=== PATIENT | female | born 1990 | race Hispanic/Latino ===

== ENCOUNTER 2020-11-14 09:46 | Emergency (ER) | payer MEDICAID, SELFPAY ==
--- NOTE | ~2020-11-14 | US_ITS ---
EXAMINATION: US OB <=14 wk fetus w TV DATE: 11/14/2020 11:01 INDICATION: Left adnexal pain. Left lower quadrant abdominal pain. TECHNIQUE: Real-time transabdominal and transvaginal pelvic ultrasound was performed. COMPARISON: None. FINDINGS: TRANSABDOMINAL ULTRASOUND: The uterus measures 9.7 x 6.1 x 7.8 cm. TRANSVAGINAL ULTRASOUND: There is an intrauterine gestational sac. A yolk sac is identified. The fet al crown rump length measures 4 mm, which correlates with an estimated gestational age of 6 weeks and 0 day(s) (+/-) 4 day(s). heart motion is identified measuring 121 beats per minute (bpm) by M- mode Doppler. There is a 1.7 cm hypoechoic submucosal mass, likely a fibroid. The right ovary measur es 3.3 x 2.9 x 2.2 cm. The left ovary measures 2.7 x 2.7 x 1.5 cm. There is no free fluid in the pelv is. IMPRESSION: 1. Single living intrauterine gestation with estimated date of delivery of 07/10/2021. 2. Uterine fibroid. Reviewed, dictated and finalized at location A. IMPRESSION: 1. Single living intrauterine gestation with estimated date of delivery of . 2. Uterine fibroid.
[2020-11-14 10:14] VITALS: BP 154/86; PULSE 96; RESP 14; TEMP 36.1; O2SAT 99
[2020-11-14] MEDS: SODIUM CHLORIDE 0.9% IV 1,000 ML 999 ML IV CONT (10:18)
[2020-11-14 10:21] LABS: Basophils Absolute Auto 0.1 K/mm3 (0.0-0.1); Basophils Percent Auto 0.4 % (0.2-1.2); Eosinophils Absolute Auto 0.2 K/mm3 (0-0.3); Eosinophils Percent Auto 1.6 % (0-4.4); Hemoglobin 11.4 g/dL (12.0-15.0); Immature Granulocyte Absolute 0.05 K/mm3 (0.00-0.031); Immature Granulocyte Percent A 0.4 % (0-0.5); Lymphocytes Absolute Auto 2.82 K/mm3 (0.9-3.2); Lymphocytes Percent Auto 24.8 % (18.3-44.2); Mean Corpuscular HGB Conc 30.8 g/dl (32-36); Mean Corpuscular Hemoglobin 23.2 pg (26-34); Mean Corpuscular Volume 75.2 fl (80-100); Mean Platelet Volume 9.8 fl (7.4-10.4); Monocytes Absolute Auto 0.7 K/mm3 (0.1-0.6); Monocytes Percent Auto 5.8 % (2.6-8.5); Neutrophils Absolute Auto 7.6 K/mm3 (1.3-6.7); Platelet Count Result 335 k/mm3 (150-375); Red Blood Count 4.92 M/mm3 (4.2-5.4); Red Cell Distribution Width 18.2 % (11.5-14.5); White Blood Count 11.4 K/mm3 (4.5-10.0)
[2020-11-14 10:27] LABS: Add Urine Microscopic? YES; Appearance Urine Cloudy (Clear); Bacteria Urine Trace /hpf; Bilirubin Urine Negative (Negative); Blood Urine Negative (Negative); Color Urine Yellow (Yellow); Glucose Urine UA Negative (Negative); Ketones Urine Negative (Negative); Leukocyte Esterase Ur 2+ LEU/UL (Negative); Mucus Urine Rare /lpf; Nitrate Urine Negative (Negative); Protein Urine 1+ mg/dL (Negative); RBC Urine 0-2 /hpf (0-2); Specific Grav Ur 1.029 (1.001-1.035); Squamous Epithelial Cell Urine Many /hpf (Few); Urobilinogen Urine Negative mg/dL (<2.0); WBC Urine 21-30 /hpf
[2020-11-14 10:29] LABS: Prothrombin Time 13.3 Seconds (11.1-14.7)
[2020-11-14 10:30] LABS: Alanine Aminotransferase 18 U/L (4-35); Albumin Level 4.2 g/dL (3.5-5.1); Alkaline Phosphatase 56 U/L (38-126); Anion Gap 7 mmol/L (8-16); Aspartate Amino Transferase 31 U/L (14-36); Bilirubin,Total 0.4 mg/dL (0.2-1.3); Blood Urea Nitrogen 14 mg/dL (7-17); Carbon Dioxide 24 mmol/L (22-30); Chloride 106 mmol/L (98-107); Estimated CRCL calculation 110 ml/min; Estimated Glomerular Filt Rate > 60; Glucose 122 mg/dL (65-105); Partial Thromboplastin Time 27.3 SECONDS (22.3-36.8); Potassium 3.7 mmol/L (3.4-5.0); Sodium 137 mmol/L (137-145)
[2020-11-14 10:55] VITALS: BP 125/62; PULSE 79; RESP 14; O2SAT 97
--- NOTE | 2020-11-14 10:56 | ED.GENADULT ---
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 dispatcher <Tyson Barbosa PA-C - Last Filed: 11/14/20 11:33> Time Seen by Provider: 11/14/20 09:50 <Tyson Barbosa PA-C - Last Filed: 11/14/20 11:33> Source: patient, family and RN notes reviewed <Tyson Barbosa PA-C - Last Filed: 11/14/20 11:33> Mode of arrival: ambulatory <Tyson Barbosa PA-C - Last Filed: 11/14/20 11:33> Limitations: no limitations <Tyson Barbosa PA-C - Last Filed: 11/14/20 11:33> History of Present Illness HPI narrative: Patient is a 30-year-old female who presents to emergency department for evaluation of cramping and nausea that have been present for the last month patient notes that she had had a regular menses last month but then has not had 1 since patient had a positive test at home and was referred to the emergency department today for evaluation by primary care for concern of possible ectopic . Patient has follow-up with her husbandry technician next . Patient notes that this will be Dr. Clifton. Patient denies any current pain. Patient denies vaginal bleeding illness urinary symptoms or other complaints and presents in no distress with family <Tyson Barbosa PA-C - Last Filed: 11/14/20 11:33> Related Data Allergies/adverse reactions: Allergies Allergy/AdvReac Type Severity Reaction Status Date / Time aspirin Allergy Mild STATES SHE Verified 11/14/20 10:18 HAD A REACTION A CHILD <Tyson Barbosa PA-C - Last Filed: 11/14/20 11:33> Review of Systems Review of Systems: All systems reviewed & are unremarkable except as noted in HPI and below <Tyson Barbosa PA-C - Last Filed: 11/14/20 11:33> PMFSH Past Medical History Medical History: Medical History Polycystic disease, ovaries <CESAR Lane Last Filed: 11/14/20 11:33> Social History Social History: Social History (Updated 11/14/20 @ 11:28 by Tyson Barbosa PA-C) Smoking status: Never smoker <Tyson Barbosa PA-C - Last Filed: 11/14/20 11:33> Exam Narrative: Exam Narrative: GENERAL: Well-appearing, obese, and in no acute distress. HEAD: Normocephalic, atraumatic. EYES: PERRLA and EOMI. ENT: Nares clear, no rhinorrhea or epistaxis. Mucous membranes moist. CHEST: Clear to auscultation. No respiratory distress. No wheezes rales or rhonchi HEART: Regular rate and rhythm. No murmur heard. Normal peripheral pulses. ABDOMEN: Soft, mild left adnexal and suprapubic tenderness no rebound or guarding, nondistended. EXTREMITIES: Normal range of motion. No edema. SKIN: Warm, dry, no rash. NEURO: No focal deficits. Alert and oriented x3. PSYCH: Normal mood and affect. <Tyson Barbosa PA-C - Last Filed: 11/14/20 11:33> Course Course Emergency Course: Patient in the room in no distress with confirmed intrauterine patient is afebrile nontoxic-appearing no distress denies any urinary symptoms or any vaginal bleeding or other complaints patient in the room in no distress resting comfortably agreeing to follow with her husbandry technician next week as planned and given reasons to return <Tyson Barbosa PA-C - Last Filed: 11/14/20 11:33> Vital Signs Vital signs: Vital Signs Temperature 96.9 F L 11/14/20 10:14 Pulse Rate 96 11/14/20 10:14 Respiratory Rate 14 11/14/20 10:14 Blood Pressure 154/86 H 11/14/20 10:14 Pulse Oximetry 99 11/14/20 10:14 Temperature 96.9 F L 11/14/20 10:14 Pulse Rate 71 11/14/20 11:53 Respiratory Rate 14 11/14/20 11:53 Blood Pressure 142/81 H 11/14/20 11:53 Pulse Oximetry 100 11/14/20 11:53 <Tyson Barbosa PA-C - Last Filed: 11/14/20 11:33> Vital Signs Temperature 96.9 F L 11/14/20 10:14 Pulse Rate 96 11/14/20 10:14 R
[2020-11-14 11:53] VITALS: BP 142/81; PULSE 71; RESP 14; O2SAT 100
== END 2020-11-14 11:54 | disposition home or self-care (01) ==
PROVIDERS: Emergency Medicine Emergency Medical Services; Emergency Provider General Practice; PCP Family Medicine
DX: O26.891 Other specified pregnancy related conditions, first trimester (principal); R10.9 Unspecified abdominal pain; O99.281 Endocrine, nutritional and metabolic diseases complicating pregnancy, first trimester; E28.2 Polycystic ovarian syndrome; O99.891 Other specified diseases and conditions complicating pregnancy; D25.9 Leiomyoma of uterus, unspecified; Z3A.01 Less than 8 weeks gestation of pregnancy
CPT/HCPCS: 36415; 76801; 76817; 80053; 81001; 81025; 84702; 85025; 85461; 85610; 85730; 87077; 87086; 87088; 96360; 99284; J7030

== ENCOUNTER 2020-12-21 13:44 | Outpatient (CLI) | payer MEDICAID, SELFPAY ==
--- NOTE | ~2020-12-21 | US_ITS ---
EXAMINATION: US OB <= 14 weeks fetus DATE: 12/21/2020 14:33 INDICATION: Routine care. TECHNIQUE: Real-time transabdominal pelvic ultrasound was performed. COMPARISON: Ultrasound 11/14/2020 FINDINGS: The uterus measures 12.0 x 7.5 x 9.6 cm. There is an intrauterine gestational sac. The placenta is an terior. The crown rump length measures 5.5 cm, which correlates with an estimated gestational age of 12 weeks and 1 day(s) (+/-) 1 week(s) and 1 day(s). heart motion is identified measuring 161 beats per minute (bpm) by M-mode Doppler. The right ovary measures 3.8 x 2.7 x 2.5 cm. The left ovary measures 3.1 x 1.8 x 1.8 cm. There is no free fluid in the pelvis. IMPRESSION: 1. Single living intrauterine gestation with estimated date of delivery of 07/10/2021 based on the u ltrasound from 11/14/2020. Reviewed, dictated and finalized at location A. IMPRESSION: 1. Single living intrauterine gestation with estimated date of delivery of based on the ultrasound from 11/14/2020.
== END 2020-12-21 13:45 | disposition home or self-care (01) ==
LOC: ANHIMG 13:48
PROVIDERS: Visit Provider Obstetrics & Gynecology
DX: Z34.90 Encounter for supervision of normal pregnancy, unspecified, unspecified trimester (principal)
CPT/HCPCS: 76801

== ENCOUNTER 2021-03-07 09:35 | Outpatient (RCR) | payer BC, SELFPAY ==
[2021-03-07 09:48] VITALS: BMI 82.3
== END 2021-05-29 10:11 | disposition home or self-care (01) ==
LOC: ANHDMC 09:35
PROVIDERS: PCP Family Medicine; Visit Provider Obstetrics & Gynecology Obstetrics
DX: O24.419 Gestational diabetes mellitus in pregnancy, unspecified control (principal); Z71.3 Dietary counseling and surveillance; Z3A.00 Weeks of gestation of pregnancy not specified
CPT/HCPCS: 97802; 99199

== ENCOUNTER 2021-04-03 16:43 | Observation (INO) | payer BC, SELFPAY ==
[2021-04-03 17:34] VITALS: BP 125/60; PULSE 84
[2021-04-03 17:42] VITALS: BMI 37.3
--- NOTE | 2021-04-03 17:44 | OBADM ---
This patient, Dalila Peralta, admitted to the OB room OB Post 113 for observation. Patient/family oriented to hospital policies and general routines including ID bracelet, bed and alarms, visiting hours, pain management, procedures, bathroom and other care routines, personal items, smoking policy, room service/diet, and visiting hours. Patient/Family are encouraged to report perceived risks to care and to ask questions if they do not understand what they are told or what they should do.
[2021-04-03 17:45] LABS: Add Urine Microscopic? YES; Appearance Urine Cloudy (Clear); Bacteria Urine Trace /hpf; Bilirubin Urine Negative (Negative); Blood Urine Negative (Negative); Color Urine Yellow (Yellow); Glucose Urine UA Negative (Negative); Ketones Urine Negative (Negative); Leukocyte Esterase Ur 3+ LEU/UL (NEGATIVE); Mucus Urine Rare /lpf; Nitrate Urine Negative (Negative); Protein Urine 1+ mg/dL (Negative); Specific Grav Ur 1.024 (1.001-1.035); Squamous Epithelial Cell Urine Many /hpf (Few); Urobilinogen Urine Negative mg/dL (<2.0); WBC Urine 21-30 /hpf (0-3)
[2021-04-03 17:46] VITALS: BP 117/66; PULSE 78
--- NOTE | 2021-04-07 10:34 | PM.OBTRLD ---
OB - Triage/Final Diagnosis Visit Information Reason for evaluation: threatened labor Comments/Additional reasons for admission: I have assessed the risk for this patient, Dalila Peralta, and determined that she would benefit from observation care. Evaluation Laboratory results: Laboratory Tests 04/03/21 17:33 Urine Color Yellow Urine Appearance Cloudy H Urine pH 6.0 Ur Specific [place] 1.024 Urine Protein 1+ H Urine Glucose (UA) Negative Urine Ketones Negative Ur Blood (Man) Negative Urine Nitrate Negative Urine Bilirubin Negative Urine Urobilinogen Negative Ur Leukocyte Esterase 3+ H Urine RBC 6-10 H Urine WBC 21-30 H Ur Squamous Epith Cells Many H Urine Bacteria Trace Urine Mucus Rare
== END 2021-04-03 18:10 | disposition home or self-care (01) ==
PROVIDERS: Obstetrics & Gynecology; Admitting Provider Obstetrics & Gynecology; PCP Family Medicine; Visit Provider Obstetrics & Gynecology
DX: O47.9 False labor, unspecified (principal); Z3A.00 Weeks of gestation of pregnancy not specified
CPT/HCPCS: 81001; 87086; G0378; G0379

== ENCOUNTER 2021-08-08 10:32 | Emergency (ER) | payer BC, SELFPAY ==
[2021-08-08 10:44] VITALS: BP 132/70; PULSE 76; RESP 16; TEMP 37.3; O2SAT 99
--- NOTE | 2021-08-08 12:04 | ED.GENADULT ---
HPI - General Adult General Chief complaint: Upper Respiratory Infection Stated complaint: abd pain/back pain Time Seen by Provider: 08/08/21 11:55 Source: patient and RN notes reviewed Mode of arrival: ambulatory Limitations: no limitations History of Present Illness HPI narrative: Patient presents today complaining of dizziness and body aches since yesterday with back pain, headache, cough, runny nose since 4:00 this morning. Denies fever or shortness of breath. She has been taking DayQuil and NyQuil without much relief. She has been vaccinated against COVID-19. MD complaint: Body aches, cough Related Data Home Medications Medication Instructions Recorded Confirmed No Home Medications 08/08/21 08/08/21 Allergies Allergy/AdvReac Type Severity Reaction Status Date / Time aspirin Allergy Mild STATES SHE Verified 11/14/20 10:18 HAD A REACTION A CHILD Review of Systems Review of Systems: CONSTITUTIONAL: Denies fever, chills, or sweats.+ Body aches EYES: Denies visual changes, redness, or discharge. ENT: Denies congestion, sore throat, or otalgia.+ Rhinorrhea CARDIOVASCULAR: Denies chest pain, palpitations, or edema. RESPIRATORY: Denies dyspnea.+ Cough GASTROINTESTINAL: Denies abdominal pain, nausea, vomiting, or diarrhea. GENITOURINARY: Denies dysuria or hematuria. SKIN: Denies rash, itching, or wounds. MUSCULOSKELETAL: Denies joint pain, or myalgia.+ Back pain NEUROLOGIC: Denies numbness, tingling, or weakness.+ Headache, dizziness PSYCH: Denies depression or anxiety. [facility] Past Medical History Medical History Polycystic disease, ovaries Social History Social History Smoking status: Never smoker Spiritual care concerns: No Comments At time of signature, I have reviewed and agree with nursing past medical, surgical, social and family history unless otherwise noted. Please see nursing chart for further information. There is no relevant family history pertinent to the presenting complaint Exam Narrative: GENERAL: Mildly ill-appearing, well-nourished, and in no acute distress. HEAD: Normocephalic, atraumatic. EYES: EOMI. No redness or drainage. Conjunctivae normal. ENT: Mucous membranes pink and moist. Nares clear. No rhinorrhea. TMs normal bilaterally. Throat normal. Uvula midline. NECK: Normal AROM. Supple. No lymphadenopathy. CHEST: No respiratory distress. Clear to auscultation. HEART: Regular rate and rhythm. No murmur appreciated. Normal peripheral pulses. EXTREMITIES: Normal range of motion. No edema. SKIN: Warm, dry, no rash. Capillary refill normal. Normal skin turgor. NEURO: No focal deficits. Alert and oriented x3. Gait steady. PSYCH: Normal affect. No signs of depression or anxiety. Course Course Level of Care: Express Care Visit Vital Signs Vital signs: Vital Signs Temperature 99.1 F 08/08/21 10:44 Pulse Rate 76 08/08/21 10:44 Respiratory Rate 16 08/08/21 10:44 Blood Pressure 132/70 08/08/21 10:44 Pulse Oximetry 99 08/08/21 10:44 Temperature 99.1 F 08/08/21 10:44 Pulse Rate 76 08/08/21 10:44 Respiratory Rate 16 08/08/21 10:44 Blood Pressure 132/70 08/08/21 10:44 Pulse Oximetry 99 08/08/21 10:44 Reviewed. Pt has been instructed to follow up with her PCP regarding her elevated blood pressure today. Medical Decision Making Differential Diagnosis Differential Diagnosis: COVID-19, viral syndrome, URI Vital Signs Vital Signs: Vital Signs Temperature 99.1 F 08/08/21 10:44 Pulse Rate 76 08/08/21 10:44 Respiratory Rate 16 08/08/21 10:44 Blood Pressure 132/70 08/08/21 10:44 Pulse Oximetry 99 08/08/21 10:44 Temperature 99.1 F 08/08/21 10:44 Pulse Rate 76 08/08/21 10:44 Respiratory Rate 16 08/08/21 10:44 Blood Pressure 132/70 08/08/21 10:44 Pulse Oximetry 99 01
== END 2021-08-08 12:11 | disposition home or self-care (01) ==
PROVIDERS: Emergency Provider Nurse Practitioner
DX: U07.1 COVID-19 (principal); E28.2 Polycystic ovarian syndrome
CPT/HCPCS: 87426; 99213; C9803; G0463

== ENCOUNTER 2023-03-14 11:51 | Emergency (ER) | payer BC, SELFPAY ==
[2023-03-14 12:02] VITALS: BP 124/85; PULSE 74; RESP 16; TEMP 36.7; O2SAT 100
--- NOTE | 2023-03-14 12:10 | ED.URI ---
HPI - URI/Sore Throat General Chief Complaint: Upper Respiratory Infection Stated Complaint: chills,bodyaches Time Seen by Provider: 03/14/23 12:11 Source: patient and RN notes reviewed Mode of arrival: ambulatory Limitations: no limitations History of Present Illness HPI Narrative: 32-year-old female presented for complaint of fatigue, headache, body aches, sinus pressure/congestion, sore throat, fever/chills. onset last night. Also reports intermittent left ear pain x1 week, with occasional ringing. Not taking anything for symptoms. Denies known sick contacts. Denies sob, wheezing, n/v/d. MD elicited complaint: cough Related Data Home Medications Medication Instructions Recorded Confirmed medroxyprogesterone 150 mg/mL 150 mg IM [id number] 03/14/23 03/14/23 intramuscular suspension Allergies Allergy/AdvReac Type Severity Reaction Status Date / Time aspirin Allergy Mild STATES SHE Verified 03/14/23 12:00 HAD A REACTION A CHILD Review of Systems Review of Systems: CONSTITUTIONAL: Endorses malaise, chills, sweats, fever EYES: Denies visual changes, redness, or discharge ENT: Reports rhinorrhea, congestion, otalgia, sore throat CARDIOVASCULAR: Denies chest pain, palpitations, edema RESPIRATORY: Reports cough, post nasal drainage. Denies dyspnea GASTROINTESTINAL: Denies abdominal pain, nausea, vomiting, diarrhea SKIN: Denies rash or itching MUSCULOSKELETAL: Endorses myalgia NEUROLOGIC: Endorses headache PMFSH Past Medical History Medical History Polycystic disease, ovaries Social History Social History Smoking status: Never smoker Spiritual care concerns: No Exam Narrative: GENERAL: mildly Ill-appearing, nontoxic no acute distress. HEAD: Normocephalic EYES: PERRLA, conjunctivae clear ENT: Mucous membranes moist. Right TM pearly price with dull light reflex; Left TM erythematous and bulging with purulent effusion; no tragal or mastoid tenderness. Oropharynx erythematous without lesions or exudate, no drooling, no hoarseness, no trismus, uvula midline. NECK: Supple. No lymphadenopathy CHEST: Clear to auscultation, breath sounds equal. No respiratory distress, speaks in full sentences. HEART: Regular rate and rhythm. No murmur heard. SKIN: Warm, dry, no rash. NEURO: Alert and oriented x3. PSYCH: Normal mood and affect Course Course Emergency Course: Patient is aware of diagnosis, understands and agrees to treatment plan. Anticipatory guidance given. Patient agrees to follow-up as directed and is aware of reasons to seek care at the emergency department. Portions of this record may have been created with voice recognition software Level of Care: Express Care Visit Vital Signs Vital signs: Vital Signs Temperature 98.1 F 03/14/23 12:02 Pulse Rate 74 03/14/23 12:02 Respiratory Rate 16 03/14/23 12:02 Blood Pressure 124/85 03/14/23 12:02 Pulse Oximetry 100 03/14/23 12:02 Oxygen Delivery Room Air 03/14/23 12:02 Temperature 98.1 F 03/14/23 12:02 Pulse Rate 74 03/14/23 12:02 Respiratory Rate 16 03/14/23 12:02 Blood Pressure 124/85 03/14/23 12:02 Pulse Oximetry 100 03/14/23 12:02 Oxygen Delivery Room Air 03/14/23 12:02 reviewed MDM - URI/Sore Throat MDM Narrative Medical decision making narrative: results of COVID and strep test reviewed with patient. Discussed physical exam findings of left AOM. Advised supportive measures and signs/symptoms to go to the ER. Pt is appropriate for outpt treatment and f/u. Differential Diagnosis Differential diagnosis: Likely upper respiratory infection, otitis media, sinusitis, viral infection and pharyngitis Lab Data Labs: Lab Results 03/14/23 Range/Units 12:25 POC SARS CoV-2 Ag Negative (Negative) Influenza A Screen Negative
== END 2023-03-14 12:59 | disposition home or self-care (01) ==
PROVIDERS: Emergency Provider Nurse Practitioner Family; PCP Emergency Medicine
DX: H66.92 Otitis media, unspecified, left ear (principal); Z20.822 Contact with and (suspected) exposure to COVID-19; E28.2 Polycystic ovarian syndrome
CPT/HCPCS: 87081; 87426; 87804; 87880; 99213; C9803; G0463

== ENCOUNTER 2023-07-17 12:52 | Emergency (ER) | payer BC, SELFPAY ==
[2023-07-17 13:24] VITALS: BP 145/86; PULSE 71; RESP 16; TEMP 36.8; O2SAT 99
--- NOTE | 2023-07-17 14:44 | ED.URI ---
HPI - URI/Sore Throat General Chief Complaint: Upper Respiratory Infection Stated Complaint: runny nose,both ears ache History of Present Illness HPI Narrative: 32-year-old female presenting for complaint of bilateral ear pressure and runny nose over the past few days. She endorses more frequent ear infections over the past year. She is taking multiple [id number] medications for symptoms. Endorses occasional dizziness. She denies ear drainage, tinnitus, headache, nausea, vomiting diarrhea, fevers or chills. Related Data Home Medications Medication Instructions Recorded Confirmed medroxyprogesterone 150 mg/mL 150 mg IM [id number] 03/14/23 07/17/23 intramuscular suspension Allergies Allergy/AdvReac Type Severity Reaction Status Date / Time aspirin Allergy Mild STATES SHE Verified 07/17/23 14:00 HAD A REACTION A CHILD Review of Systems Review of Systems: Per HPI [facility] Past Medical History Medical History Polycystic disease, ovaries Social History Social History Smoking status: Never smoker Spiritual care concerns: No Exam Narrative: GENERAL: well-appearing, no acute distress. EYES: conjunctivae clear ENT: Mucous membranes moist. Left TM pearly price with normal light reflex, right TM erythematous, bulging and intact, canal not erythematous, No drainage; no tragal tenderness. Oropharynx erythematous, Tonsils enlarged 1+ and without exudate. No drooling, no hoarseness, no trismus, uvula midline. No tripod positioning, hot potato voice, or soft palate swelling. NECK: Supple. No lymphadenopathy CHEST: Clear to auscultation, breath sounds equal. No respiratory distress, speaks in full sentences. HEART: Regular rate and rhythm. No murmur heard. SKIN: Warm, dry, no rash. NEURO: Alert and oriented x3. Course Course Emergency Course: Patient is aware of diagnosis, understands and agrees to treatment plan. Anticipatory guidance given. Patient agrees to follow-up as directed and is aware of reasons to seek care at the emergency department. Portions of this record may have been created with voice recognition software Level of Care: Express Care Visit Vital Signs Vital signs: Vital Signs Temperature 98.2 F 07/17/23 13:24 Pulse Rate 71 07/17/23 13:24 Respiratory Rate 16 07/17/23 13:24 Blood Pressure 145/86 H 07/17/23 13:24 Pulse Oximetry 99 07/17/23 13:24 Oxygen Delivery Room Air 07/17/23 13:24 Temperature 98.2 F 07/17/23 13:24 Pulse Rate 71 07/17/23 13:24 Respiratory Rate 16 07/17/23 13:24 Blood Pressure 145/86 H 07/17/23 13:24 Pulse Oximetry 99 07/17/23 13:24 Oxygen Delivery Room Air 07/17/23 13:24 MDM - URI/Sore Throat MDM Narrative Medical decision making narrative: discussed physical exam findings, Advise supportive treatments. Patient is appropriate for outpatient treatment and follow-up. Differential Diagnosis Differential diagnosis: Likely upper respiratory infection, viral infection and pharyngitis Discharge Plan Discharge Clinical Impression: Upper respiratory infection Patient Disposition: Home, Self-Care Condition: Stable Instructions: Antibiotic Form, Ear Infection (ED), Upper Respiratory Infection (ED) Additional Instructions: take antibiotic as directed Recommend Flonase spray and Zyrtec (or Claritin/Trang) over the counter Cough syrup may cause drowsiness; avoid driving or take it at night time. Tylenol 1000mg every 8 hours as needed for pain Symptomatic treatment includes: rest, fluids, and increase humidity of the air at home. Follow up with your primary care provider in 1 week. Go to the ER for worsening symptoms or concerns. Prescriptions: New amoxicillin-pot clavulanate 875-125 mg tablet 1 tablet PO Q12H 7 Days Qty: 14 0RF No Action medr
== END 2023-07-17 14:52 | disposition home or self-care (01) ==
PROVIDERS: Emergency Provider Nurse Practitioner Family; PCP Physician Assistant
DX: J06.9 Acute upper respiratory infection, unspecified (principal); E28.2 Polycystic ovarian syndrome
CPT/HCPCS: 99213; G0463

== ENCOUNTER 2023-09-10 10:21 | Emergency (ER) | payer BC, SELFPAY ==
--- NOTE | 2023-09-10 10:26 | ED.URI ---
HPI - URI/Sore Throat General Chief Complaint: Upper Respiratory Infection Stated Complaint: Sinus/Bodyaches Time Seen by Provider: 09/10/23 10:26 Source: patient Mode of arrival: ambulatory Limitations: no limitations History of Present Illness HPI Narrative: Dalila is a 33-year-old female patient presenting to the clinic today with complaints of runny nose, cough, sore throat, body aches, chest congestion, and feeling feverish. She reports symptoms started 3 days ago with throat pain and has gradually gotten worse over the past 1 day. No known exposure to anyone with COVID, flu, or strep. States cough is productive bringing up some yellow phlegm. Denies smoking history. No history of asthma or COPD. MD elicited complaint: cough, sore throat, rhinorrhea and nasal congestion Related Data Home Medications Medication Instructions Recorded Confirmed medroxyprogesterone 150 mg/mL 150 mg IM [id number] 03/14/23 09/10/23 intramuscular suspension metformin 500 mg tablet 500 mg PO BID 09/10/23 09/10/23 Allergies Allergy/AdvReac Type Severity Reaction Status Date / Time aspirin Allergy Mild STATES SHE Verified 09/10/23 10:25 HAD A REACTION A CHILD Review of Systems Review of Systems: Pertinent positives per HPI. Patient denies any rash, headache, visual changes, dizziness, cough, shortness of breath, chest pain, palpitations, nausea, vomiting, diarrhea, constipation, abdominal pain, or any urinary issues. [facility] Past Medical History Medical History Polycystic disease, ovaries Social History Social History Smoking status: Never smoker Spiritual care concerns: No Comments At the time of my signature, I reviewed and agree with the nursing past medical, surgical, social, and family history. There is no relevant family history pertinent to the patient complaint. Exam Narrative: General: Well-developed, obese, in no apparent distress Head: Normocephalic, atraumatic Eyes: Pupils equally round and reactive to light bilaterally, EOM intact, sclera and conjunctive clear, no discharge, lids normal Ears: TMs intact and congested, ear canals clear, no drainage, grossly hearing normal. Nose: Nares patent, clear nasal discharge, moderate inflammation, no sinus tenderness. Mouth: Oral pharynx red without lesions or masses, good dentition, MMM. Neck: Supple, trachea midline, no enlargement of anterior or posterior cervical nodes, no thyroid masses or goiter palpable. Cardio: Regular rate and rhythm, s1 and s2 normal, no murmur appreciated. Resp: Clear to auscultation bilaterally, no rhonchi, rales, wheezing or rubs Course Course Emergency Course: Portions of this record may have been created with voice recognition software. Level of Care: Express Care Visit Vital Signs Vital signs: Vital signs reviewed MDM - URI/Sore Throat MDM Narrative Medical decision making narrative: At the time of visit patient is resting comfortably on the exam table. Patient appears to be nontoxic. Labs: COVID, influenza, and strep test was performed. Influenza B testing was positive. COVID and strep test were negative. We will send strep for culture. Plan: Testing was positive for influenza B. Patient is out of the window for Tamiflu. Work note was given supportive measures were discussed with the patient and they voiced understanding discharge instructions and agrees to treatment plan. Return precautions reviewed Differential Diagnosis Differential diagnosis: Likely upper respiratory infection, otitis media, sinusitis, viral infection, bronchitis, influenza, pharyngitis and other (COVID) Discharge Plan Discharge Clinical Impression: Influenza B Patient Disposition: Home, Self-Care Condition: Stable Instructions: Antibiotic Form, Influenza (ED) Additional Instructions:
[2023-09-10 10:34] VITALS: BP 147/105; PULSE 82; RESP 16; TEMP 36.4; O2SAT 100
== END 2023-09-10 10:49 | disposition home or self-care (01) ==
PROVIDERS: Emergency Provider Nurse Practitioner Family; PCP Physician Assistant
DX: J10.1 Influenza due to other identified influenza virus with other respiratory manifestations (principal); Z79.84 Long term (current) use of oral hypoglycemic drugs; Z79.899 Other long term (current) drug therapy; Z20.822 Contact with and (suspected) exposure to COVID-19
CPT/HCPCS: 87081; 87426; 87804; 87880; 99213; G0463

== ENCOUNTER 2023-12-15 20:04 | Emergency (ER) | payer BC, SELFPAY ==
--- NOTE | ~2023-12-15 | XR_ITS ---
Portable chest x-ray Comparison: None Clinical History: Chest pain Findings: Lungs are clear, without focal consolidation or pleural effusion. Cardiomediastinal silho uette is unremarkable. Bones and soft tissues are unremarkable. Impression: Normal chest. Reviewed, dictated and finalized at location M. Impression: Normal chest.
--- NOTE | ~2023-12-15 | CT_ITS ---
Non-contrast CT scan of the Abdomen and Pelvis Clinical indication: Right flank pain Technique: 2.5 mm axial scans were obtained through the abdomen and pelvis without intravenous or or al contrast. Dose reduction technique was used on this scan by utilizing automated exposure control a nd iterative reconstruction technique. The dose-length product (DLP) was 1514.04 mGy-cm. Findings: Images through the lung bases reveal no abnormalities. There is no evidence of renal or ureteral calculi. The kidneys and the ureters are nondilated. Calcified gallstone present. There is diffuse hepatic steatosis. The spleen, pancreas, and adrenals a ppear normal. There is no aortic aneurysm. There is no evidence of bowel obstruction. Images through the pelvis were performed. There is no evidence of ascites or lymphadenopathy. Urinary bladder unremarkable. No adnexal mass seen. No ascites. Impression: Cholelithiasis. Probable diffuse hepatic steatosis. Reviewed, dictated and finalized at [facility]. Impression: Cholelithiasis. Probable diffuse hepatic steatosis.
--- NOTE | 2023-12-15 20:16 | ECG_ITS ---
SEE SCANNED COPY FOR CONFIRMED REPORT MTDD
[2023-12-15 20:19] VITALS: BP 164/86; PULSE 94; RESP 20; TEMP 36.2; O2SAT 100
[2023-12-15 21:30] LABS: Appearance Urine Clear (Clear); Bilirubin Urine Negative (Negative); Blood Urine Negative (Negative); Color Urine Yellow (Yellow); Glucose Urine UA 2+ mg/dL (Negative); Ketones Urine Negative (Negative); Leukocyte Esterase Ur Negative LEU/UL (Negative); Nitrate Urine Negative (Negative); Protein Urine Negative (Negative); Specific Grav Ur 1.021 (1.001-1.035); Urobilinogen Urine 0.2 mg/dL (<2.0); pH Urine 5.5 (5.0-9.0)
[2023-12-15 21:45] LABS: Add Urine Microscopic? NO
[2023-12-15 23:12] VITALS: BP 149/101; PULSE 82; RESP 16; O2SAT 98
--- NOTE | 2023-12-16 01:42 | ECG_ITS ---
SEE SCANNED COPY FOR CONFIRMED REPORT MTDD
[2023-12-16 01:50] VITALS: BP 160/84; PULSE 74; RESP 20; TEMP 36.7; O2SAT 100
[2023-12-16 01:53] VITALS: BP 160/84; PULSE 67; RESP 18; O2SAT 100
[2023-12-16 02:06] LABS: Basophils Percent Auto 0.4 % (0.2-1.2); Eosinophils Absolute Auto 0.3 K/mm3 (0-0.3); Eosinophils Percent Auto 3.1 % (0-4.4); Hematocrit 42.2 % (37.0-47.0); Immature Granulocyte Absolute 0.04 K/mm3 (0.00-0.031); Immature Granulocyte Percent A 0.4 % (0-0.5); Lymphocytes Absolute Auto 3.64 K/mm3 (0.9-3.2); Lymphocytes Percent Auto 35.8 % (18.3-44.2); Mean Corpuscular HGB Conc 33.2 g/dl (32-36); Mean Corpuscular Hemoglobin 28.3 pg (26-34); Mean Corpuscular Volume 85.3 fl (80-100); Mean Platelet Volume 10.3 fl (7.4-10.4); Monocytes Absolute Auto 0.7 K/mm3 (0.1-0.6); Monocytes Percent Auto 6.5 % (2.6-8.5); Neutrophils Absolute Auto 5.5 K/mm3 (1.3-6.7); Neutrophils Percent Auto 53.8 % (45.5-73.1); Platelet Count Result 279 k/mm3 (150-375); Red Blood Count 4.95 M/mm3 (4.2-5.4); Red Cell Distribution Width 13.6 % (11.5-14.5); White Blood Count 10.2 K/mm3 (4.5-10.0)
[2023-12-16 02:19] LABS: Alanine Aminotransferase 48 U/L (6-35); Albumin Level 4.3 g/dL (3.5-5.1); Alkaline Phosphatase 87 U/L (38-126); Anion Gap 8 mmol/L (4-12); Aspartate Amino Transferase 44 U/L (14-36); Bilirubin,Total 0.5 mg/dL (0.2-1.3); Blood Urea Nitrogen 15 mg/dL (7-17); Carbon Dioxide 21 mmol/L (22-30); Chloride 108 mmol/L (98-107); Estimated CRCL calculation 140 ml/min; Estimated Glomerular Filt Rate > 60; Glucose 156 mg/dL (65-110); Lipase 125 U/L (23-300); Potassium 3.7 mmol/L (3.4-5.0); Sodium 137 mmol/L (137-145)
[2023-12-16 02:21] LABS: Pregnancy On Board Control Positive; Urine Pregnancy Test Negative
[2023-12-16 02:29] LABS: Troponin I < 0.012 ng/mL (0.000-0.034)
--- NOTE | 2023-12-16 04:58 | ED.ABDPAIN ---
HPI - Abdominal Pain General Chief Complaint: Abdominal Pain Stated Complaint: R sided flank pain Time Seen by Provider: 12/16/23 01:24 History of Present Illness HPI narrative: Patient is a 33-year-old female who presents emergency department with chief complaint of right-sided flank pain. Patient reports that she has been having some intermittent discomfort for the last 3 weeks and also had pain in the left side of her chest. The patient reports the pain is sharp and worse with inspiration worse with movement. Related Data Home Medications Medication Instructions Recorded Confirmed medroxyprogesterone 150 mg/mL 150 mg IM [id number] 03/14/23 09/10/23 intramuscular suspension metformin 500 mg tablet 500 mg PO BID 09/10/23 09/10/23 Allergies Allergy/AdvReac Type Severity Reaction Status Date / Time aspirin Allergy Mild STATES SHE Verified 09/10/23 10:25 HAD A REACTION A CHILD Review of Systems Review of Systems: A 10 system review of systems was completed on the patient and is negative except for what is stated in the HPI. Nursing and ancillary documentation was reviewed. [facility] Past Medical History Medical History Polycystic disease, ovaries Social History Social History Smoking status: Never smoker Spiritual care concerns: No Exam Narrative: GENERAL: Well-appearing, well-nourished, and in no acute distress. HEAD: Normocephalic, atraumatic. EYES: PERRLA and EOMI. ENT: Nares clear, no rhinorrhea or epistaxis. Mucous membranes moist. NECK: Supple. CHEST: Clear to auscultation. No respiratory distress. Chest wall is tender to palpation left sternal border HEART: Regular rate and rhythm. No murmur heard. Normal peripheral pulses. ABDOMEN: Soft, nontender, nondistended, normal active bowel sounds. EXTREMITIES: Normal range of motion. No edema. SKIN: Warm, dry, no rash. NEURO: No focal deficits. Alert and oriented x3. PSYCH: Normal mood and affect. Course Vital Signs Vital signs: Vital Signs Temperature 36.2 C L 12/15/23 20:19 Pulse Rate 94 12/15/23 20:19 Respiratory Rate 20 12/15/23 20:19 Blood Pressure 164/86 H 12/15/23 20:19 Pulse Oximetry 100 12/15/23 20:19 Temperature 36.7 C 12/16/23 01:50 Pulse Rate 76 12/16/23 05:19 Respiratory Rate 20 12/16/23 05:19 Blood Pressure 171/98 H 12/16/23 05:19 Pulse Oximetry 99 12/16/23 05:19 Oxygen Delivery Room Air 12/16/23 01:50 MDM - Abdominal Pain MDM Narrative Medical decision making narrative: Differential diagnosis ureterolithiasis, UTI, pyelonephritis, intra-abdominal infection, chest pain Urinalysis showed no evidence of UTI EKG showed no acute ischemic changes Troponin was less than 0.012 CBC showed a white count of 10.2 electrolytes showed normal sodium chloride was 3.7 CO2 is 21 BUN was 15 creatinine 0.6 liver enzymes were slightly elevated with AST of 44 and ALT of 48 bilirubin is normal at 0.5 lipase was normal at 125 urinalysis showed no evidence UTI A CT scan of the abdomen pelvis was ordered and is currently pending. The patient has decided that she does not want to stay and wait for the results and the patient will be signed out AMA The patient decided not sign out AMA. CT scan showed evidence of cholelithiasis without evidence of cholecystitis Patient is feeling better at this time the patient instructed to low-fat no fat diet and to follow up with her primary care provider as she may need further evaluation for gallbladder disease. Lab Data 12/16/23 02:01 12/16/23 02:01 Labs: Lab Results 12/15/23 12/16/23 Range/Units 20:34 02:01 WBC 10.2 H (4.5-10.0) K/mm3 RBC 4.95 (4.2-5.4) M/mm3 Hgb 14.0 (12.0-15.0) g/dL Hct 42.2 (37.0-47.0) % MCV 85.3 (80-100) fl MCH 28.3 (26-34) pg
[2023-12-16 05:19] VITALS: BP 171/98; PULSE 76; RESP 20; O2SAT 99
== END 2023-12-16 06:35 | disposition home or self-care (01) ==
PROVIDERS: Emergency Medicine; Emergency Provider Emergency Medicine; PCP Physician Assistant
DX: K80.20 Calculus of gallbladder without cholecystitis without obstruction (principal); E28.2 Polycystic ovarian syndrome; R94.31 Abnormal electrocardiogram [ECG] [EKG]; R93.2 Abnormal findings on diagnostic imaging of liver and biliary tract
CPT/HCPCS: 36415; 71045; 74176; 80053; 81003; 81025; 83690; 84484; 85025; 93005; 99284

== ENCOUNTER 2024-06-30 02:35 | Emergency (ER) | payer SELFPAY ==
[2024-06-30 02:40] VITALS: BP 150/97; PULSE 83; RESP 15; TEMP 36.6; O2SAT 100
--- NOTE | 2024-06-30 03:36 | ED.BACK ---
HPI - Back Pain/Injury General Chief Complaint: Back Pain/Injury Stated Complaint: lower back pain Time Seen by Provider: 06/30/24 02:53 History of Present Illness HPI Narrative: Patient is a 33-year-old female who presents to the emergency department this evening complaining of a lower back pain associated with the left-sided sciatic pain. Admits that symptoms have been ongoing for the past few months. Patient denies any recent falls or trauma, denies any fevers or chills, denies any bowel or bladder incontinence. No additional symptoms or concerns at this time. Related Data Home Medications ?Medication ?Instructions ?Recorded ?Confirmed ?Last Taken ?Type medroxyprogesterone 150 mg/mL 150 mg IM [id number] 03/14/23 09/10/23 Unknown History intramuscular suspension metformin 500 mg tablet 500 mg PO BID 09/10/23 09/10/23 Unknown History Allergies Allergy/AdvReac Type Severity Reaction Status Date / Time aspirin Allergy Mild STATES SHE Verified 06/30/24 03:55 HAD A REACTION A CHILD Review of Systems Review of Systems: All systems are reviewed and are negative unless stated otherwise in the HPI. [facility] Past Medical History Medical History Polycystic disease, ovaries Social History Social History Smoking status: Never smoker Spiritual care concerns: No Exam Narrative: General: Alert, awake, afebrile, in no acute distress. HEENT: PERRL, no rhinorrhea, no post nasal drip, oropharynx clear. Neck: Trachea midline, no JVD, no lymphadenopathy. Cardiovascular: Regular rate and rhythm, no murmurs, rubs or gallops, no peripheral edema. Respiratory: Clear to auscultation bilaterally, no tachypnea, no wheezing, no rhonchi, no rubs, no respiratory distress. Abdomen: Soft, nontender, nondistended, no rebound, no guarding, no peritoneal signs. Musculoskeletal: No joint swelling or deformity, normal muscle tone. Skin: No rashes or petechia, no signs of infection. Psychiatric: Alert and oriented, normal behavior and judgment for situation. Neurological: Alert and oriented to person, place, and time. Follows all commands. No focal deficits, speech is clear and fluent. Course Vital Signs Vital signs: Vital Signs Temperature 98 F 06/30/24 02:40 Pulse Rate 83 06/30/24 02:40 Respiratory Rate 15 06/30/24 02:40 Blood Pressure 150/97 H 06/30/24 02:40 Pulse Oximetry 100 06/30/24 02:40 Oxygen Delivery Room Air 06/30/24 02:40 Temperature 98 F 06/30/24 02:40 Pulse Rate 76 06/30/24 04:28 Respiratory Rate 15 06/30/24 04:28 Blood Pressure 142/88 H 06/30/24 04:28 Pulse Oximetry 99 06/30/24 04:28 Oxygen Delivery Room Air 06/30/24 02:40 MDM - Back Pain/Injury MDM Narrative Medical decision making narrative: The patient was evaluated by myself in the emergency department. History is obtained from patient who is an independent historian and physical exam was performed. External medical records were reviewed at this time. Patient was administered an oral [place] 5-325 mg, and a Lidoderm patch with improvement of her symptoms. Differential diagnosis considerations include herniated disc, sciatic pain secondary to nerve compression, lumbosacral strain. Comorbidities impacting this visit include history of chronic lower back pain with sciatica. I have evaluated and discussed social determinants of health with the patient that could potentially impact subsequent diagnosis and treatment plans. On repeat assessment of the patient, reevaluation revealed that the patient is doing well and is in no acute distress. Patient symptoms have improved since she arrived to our emergency department. Repeat vital signs were all reviewed and noted to be stable. Differential diagnosis and treatment plan were discussed with the patient at bedside. Patient agrees with discussion and after shared medical decision making agrees with discharge. All questions were answered to the patient's satisfaction. Patient will follow up with Orthopedic Spine in 3-5 days. Patient was informed that she would likely need an MRI to further assess her chronic back pain patient is agreeable. She was provided with scripts for [place] and Lidoderm patches to use as needed for breakthrough pain in addition to ibuprofen. Patient was provided with strict return precautions and instructed to return to the emergency department if any new or worsening symptoms develop. The patient was discharged in stable condition. Discharge Plan Discharge Clinical Impression: Sciatica, Lumbosacral strain Patient Disposition: Home, Self-Care Condition: Improved Instructions: Antibiotic Form, Sciatica (ED), Lower Back Exercises (ED) Additional Instructions: Please follow-up with the spinal specialist you were provided with today regarding your chronic lower back pain/sciatica as you may need a repeat MRI since her last 1 was over 5 years ago. Take the prescribed medication as needed for breakthrough pain when ibuprofen is not alleviating your pain. Return to the emergency department if any new or worsening symptoms develop. Patient Language: [place]ian Prescriptions: New hydrocodone-acetaminophen 5-325 mg tablet 1 tablet PO Q8H PRN (Reason: pain) Qty: 7 0RF lidocaine [Lidoderm] 5 % adhesive patch,medicated 1 patch topical DAILY Qty: 15 0RF Rx Instructions: leave on most painful area for up to 12 hrs No Action medroxyprogesterone 150 mg/mL suspension 150 mg IM [id number] metformin 500 mg tablet 500 mg PO BID Follow-up/Referrals: arm[facility] [Other] - 07/04/24 Justin,RENETTA Pablo [Primary Care Provider] - 1 Week Time of Disposition: 03:41
[2024-06-30] MEDS: methylPREDNISolone SOD SUCC 125 MG VIAL IM (03:56)
[2024-06-30] MEDS: LIDOCAINE 5% PATCH 1 PATCH TRANSDERM (03:57)
[2024-06-30] MEDS: HYDROcodone/acetaminophen (*CRX) 5-325 MG TABLET 1 TAB PO (03:57)
[2024-06-30 04:28] VITALS: BP 142/88; PULSE 76; RESP 15; O2SAT 99
== END 2024-06-30 04:30 | disposition home or self-care (01) ==
LOC: ANHED 03:53
PROVIDERS: Emergency Provider Emergency Medicine; PCP Physician Assistant
DX: M54.42 Lumbago with sciatica, left side (principal); S39.012A Strain of muscle, fascia and tendon of lower back, initial encounter; E28.2 Polycystic ovarian syndrome; Z79.84 Long term (current) use of oral hypoglycemic drugs; X58.XXXA Exposure to other specified factors, initial encounter
CPT/HCPCS: 96372; 99283; A9270; J2919